=== PATIENT | male | born 1965 | race Caucasian/White ===

== ENCOUNTER 2017-07-22 08:56 | Inpatient (IN) ==
[2017-07-22] MEDS ORDERED: *HR* OxyCODONE Immed Rel 5 MG TABLET PO PRN (13:36)
[2017-07-22] MEDS ORDERED: Naloxone 0.4 MG/ML INJ IVP PRN (13:36)
[2017-07-22] MEDS ORDERED: Acetaminophen 325 MG TABLET PO PRN (13:36)
[2017-07-22] MEDS ORDERED: *HR* HYDROcodone/Acet 5/325 mg TABLET PO PRN (13:36)
[2017-07-22] MEDS ORDERED: *HR* Heparin 5,000 UNIT/ML VIAL IVP ONE (13:53)
[2017-07-22] MEDS ORDERED: *HR* Heparin 5,000 UNIT/ML VIAL IVP PRN ×2 (13:53)
[2017-07-22 13:59] LABS: Basophils % 0.4 %; Eosinophils # 0.1 K/mcL (0.0-0.6); Eosinophils % 1.2 %; Hematocrit 42.5 % (37.5-50.1); Hemoglobin 14.6 g/dL (12.9-16.9); Immature Granulocytes % 0.2 % (0-4); Lymphocytes # 3.6 K/mcL (0.6-4.6); Lymphocytes % 42.7 %; Mean Corpuscular HGB Conc 34.4 g/dL (31.6-35.5); Mean Corpuscular Hemoglobin 30.4 pg (28.0-33.3); Mean Corpuscular Volume 88.5 fL (83.0-100.0); Mean Platelet Volume 10.1 fL (9.4-12.4); Monocytes # 0.7 K/mcL (0.0-1.3); Monocytes % 8.4 %; Neutrophils # 3.9 K/mcL (1.6-8.9); Platelet Count 280 K/mcL (140-400); Red Cell Distribution Width 13.5 % (11.5-14.5); Segmented Neutrophils % 47.1 %
[2017-07-22 14:17] LABS: Alanine Aminotransferase 15 Units/L (7-52); Albumin 4.2 g/dL (3.5-5.7); Albumin/Globulin Ratio 1.7 (1.1-2.2); Alkaline Phosphatase 105 Units/L (34-104); Aspartate Amino Transferase 18 Units/L (13-39); BUN/Creatinine Ratio 12 (6-26); Bilirubin,Total 0.4 mg/dL (0.3-1.0); Blood Urea Nitrogen 12 mg/dL (6-20); Calcium 8.6 mg/dL (8.6-10.3); Carbon Dioxide 25 mEq/L (23-29); Chloride 109 mEq/L (98-107); Globulin 2.5 g/dL (2.4-3.5); Glucose 89 mg/dL (70-105); Osmolality,Calculated 285 (280-300); Potassium 4.3 mEq/L (3.5-5.1); Sodium 138 mEq/L (136-145); Total Protein 6.7 g/dL (6.4-8.9); eGFR For African Americans > 60 (> 60); eGFR For Non-African Americans > 60 (> 60)
[2017-07-22 14:23] LABS: Troponin I 0.15 ng/mL (< 0.04)
[2017-07-22] MEDS: Heparin 25,000 UNIT/500 ML D5W 25,000 UNIT/500 ML BAG IVC SCH (14:31)
--- NOTE | 2017-07-22 15:05 | Internal Med History&Physical ---
<Ilan Segura - Last Filed: 07/22/17 15:30> Date of Encounter: 07/22/17 Time of Encounter: 12:30 Internal Medicine - H&P: HPI Chief complaint: CP Admitted From: Emergency Dept Plans for Post Hospital Care: Home History of present illness: Mr. Khalil is a 51 year old male w/no medical hx presents from the ED w/CC of CP for the past month that is intermittent but that has become progressively worse over the past week. This morning, pt. describes pain as the worst it has been. Describes pain as right-sided CP that is sharp/stabbing w/radiation to the right arm. Describes pain as severe enough to bring him to his knees. Associated sx: diaphoresis and SOB. Pain comes on at rest and lasts up to 30 minutes. No alleviating factors. 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 Denies taking any medications daily (including aspirin), cardiac hx, or recent cardiac work-up. Reports he is adopted so very little biological info on parents available except that father of CVA. Patient denies recent illness , fever, chills, nausea, vomiting, changes in vision, headache, abdominal pain, diarrhea, constipation, dizziness, lightheadedness, pre-syncope, or syncope. Past Med Surg Social Fam HX - Past Medical History Source: patient, old records reviewed Medical history: no medical history Psychiatric history: no psych history - Past Surgical History Surgical History: no surgical history - Social History Smoking Status: Current every day smoker Packs per day: 2 PPD Smokeless Tobacco Status: No Alcohol use: none Drug use: marijuana (Occasional for left hip pain) Occupational status: employed Current living situation: Home, With Family Activity Level: Independent ambulation, Very active Recent Out of Country Travel Within the Last 8 Weeks: No Exposure or Possible Exposure to Illness During Travel: No - Family History Father Adopted: Yes Race: Family Member Ethnicity: Non- Living Status: Age at : 74 Cause of : CVA Hx Family Cardiac Disorders: Yes (CVA) Hx Family Cancer: Yes (Throat) Hx Family Neurologic Disorders: Yes (CVA) Mother Adopted: Yes Race: Family Member Ethnicity: Non- Living Status: Still Living Hx Family Musculoskeletal Disorders: Yes Brother History Unknown: Yes Adopted: Yes Race: Family Member Ethnicity: Non- Living Status: Still Living Sister History Unknown: Yes Adopted: Yes Race: Family Member Ethnicity: Non- Living Status: Still Living Internal Medicine - H&P: Meds No Known Home Drugs 07/22/17 [History] 3 Allergy/AdvReac Type Severity Reaction Status Date / Time No Known Allergies Allergy Verified 07/22/17 12:58 All Systems PM: A 10-system review of systems was performed and is negative for pertinent findings except as documented above in the HPI. - Constitutional Constitutional: no chills, no fever(s), no night sweats - EENT Eyes: no change in vision, no discharge, no pain, no photophobia Ears: no ear discharge, no ear pain, no tinnitus Nose, mouth and throat: no dysphagia, no nasal discharge, no neck pain, no sore throat - Breasts Breasts: as per HPI - Cardiovascular Cardiovascular ROS IM: as per HPI, chest pain, diaphoresis, dyspnea, no lightheadedness, no palpitations, no syncope - Respiratory Respiratory: as per HPI, dyspnea, no cough, no wheezing, no excessive phlegm production - Gastrointestinal Gastrointestinal: no abdominal pain, no diarrhea, no hematemesis, no hematochezia, no melena, no nausea, no vomiting - Genitourinary Genitourinary ROS male: as per HPI - Musculoskeletal Musculoskeletal ROS IM: no numbness, no tingling - Integumentary Integumentary IM: no rash, no unusual bruising - Neurological Neurological ROS: no confusion, no convulsions, no focal weakness, no numbness, no tingling, no tremor(s) - Psychiatric Psychiatric: as per HPI - Endocrine Endocrine IM: as per HPI - Hematologic/Lymphatic Hematologic/Lymphatic: no easy bruising - Allergic/Immunologic Allergic/Immunologic: as per HPI - Constitutional Vitals: Temp Pulse Resp BP Pulse Ox 97.5 F L 63 19 126/76 97 07/22/17 12:42 07/22/17 13:21 07/22/17 12:42 07/22/17 12:42 07/22/17 12:42 General appearance: Present: cooperative, A&O X 3, pleasant, no acute distress, answers questions appropriately - Head Head exam: Present: atraumatic, normocephalic - Eye Eye exam: Present: PERRL, conjuntiva pink, sclera anicteric Pupils: Present: PERRL - ENT ENT exam: Present: normal exam, normal external ear exam - Neck Neck exam general surgery: Present: normal inspection, supple, trachea midline. Absent: lymphadenopathy - Respiratory Respiratory exam: Present: CTAB. Absent: accessory muscle use, rales, rhonchi, wheezes - Cardiovascular Cardiovascular exam: Present: RRR, +S1, +S2. Absent: diastolic murmur, gallop, rubs, systolic murmur - GI/Abdominal GI/Abdominal exam: Present: normal bowel sounds, soft, no peritoneal signs. Absent: distended, tenderness - Rectal Rectal exam: Present: deferred - Additional comments: exam deferred. - Extremities Exam Extremities exam: Present: warm, radial pulses palpable and symmetrical. Absent : calf tenderness, cyanotic, pedal edema - Back Exam Back exam: Present: normal inspection - Neurological Exam Neurological exam: Present: alert, CN II-XII intact, oriented X3, no focal deficits. Absent: pronater drift, facial droop, speech deficit - Psychiatric Psychiatric exam: Present: normal affect, normal mood - Skin Skin exam: Present: dry, intact Internal Med - H&P Results - Labs CBC & Chem 7: 07/22/17 13:44 07/22/17 13:44 Labs: Short CBC 07/22/17 Range/Units 13:44 WBC 8.3 (4.3-11.1) K/mcL Hgb 14.6 (12.9-16.9) g/dL Hct 42.5 (37.5-50.1) % Plt Count 280 (140-400) K/mcL Neutrophils # 3.9 (1.6-8.9) K/mcL BMP 07/22/17 13:44 Sodium 138 Potassium 4.3 Chloride 109 H Carbon Dioxide 25 BUN 12 Creatinine 1.02 Glucose 89 Calcium 8.6 Cardiac Enzymes 07/22/17 Range/Units 13:44 Troponin I 0.15 H* (< 0.04) ng/mL Liver Function 07/22/17 Range/Units 13:44 Total Bilirubin 0.4 (0.3-1.0) mg/dL AST 18 (13-39) Units/L ALT 15 (7-52) Units/L Alkaline Phosphatase 105 H (34-104) Units/L Albumin 4.2 (3.5-5.7) g/dL - Assessment and plan (1) Chest pain Current Visit: Yes Status: Acute Assessment and plan: Acute CP for the past month that is intermittent but that has become progressively worse over the past week. This morning, pt. describes pain as the worst it has been. Describes pain as right-sided CP that is sharp/stabbing w/ radiation to the right arm. Describes pain as severe enough to bring him to his knees. SOB and diaphoresis w/sx. Denies cardiac hx or recent cardiac w/u. Reports biological father of CVA. Cardiology discussed pt. w/transfer personnel when he was accepted and I appreciate the consult. Aspirin. 80 mg Lipitor now. Lipid panel in a.m. labs. Echocardiogram. Continuous cardiac telemetry. Pt. placed on heparin drip d/t initial troponin of 0.15 on admission. Will trend. Nitro SL PRN. Pt. discussed w/Dr. Valdovinos who agrees w/plan of care. Pt. is high risk for cardiac event and further morbidity based on current CP sx w/elevated troponin, recurrent sx over the past month, and lack of familial cardiac hx and report of father's from CVA, and current in. Inpatient. Qualifiers: Chest pain type: other chest pain Qualified Code(s): R07.89 - Other chest pain; R07.8 - Other chest pain (2) SOB (shortness of breath) Current Visit: Yes Status: Acute Assessment and plan: Acute SOB accompanying CP sx. Pt. denies use of home O2 but reports he currently smokes 2 PPD. No hx of CHF or COPD. Supplemental O2 w/titration and SpO2 monitoring PRN. Lungs clear on auscultation. (3) Tobacco abuse counseling Current Visit: Yes Status: Acute Assessment and plan: Pt. reports smoking 2 PPD currently. Explained dangers of smoking r/t CP and AR. Pt. states that he wants to quit at this time but finds it hard since other family members are smokers. Expresses understanding to our discussion and need for cessation. Denies need for nicotine patch at this time but would like a prescription for patches on discharge. (4) DVT prophylaxis Current Visit: Yes Status: Acute Assessment and plan: Patient placed on heparin drip d/t initial elevated troponin of 0.15. Monitor pt. for signs of bleeding. - Time Spent With Patient Total time spent is greater than 50% in coordination of care (as documented) at patient's floor/unit and/or counseling patient: Greater than 35 minutes <Radha Valdovinoscrystal - Last Filed: 07/22/17 16:32> Date of Encounter: 07/22/17 Internal Medicine - H&P: HPI History of present illness: Mr. Khalil is a 51 year old male All Systems PM: A 10-system review of systems was performed and is negative for pertinent findings except as documented above in the HPI. - Constitutional Vitals: Temp Pulse Resp BP Pulse Ox 97.7 F 58 16 117/83 97 07/22/17 15:55 07/22/17 15:55 07/22/17 15:55 07/22/17 15:55 07/22/17 15:55 Internal Med - H&P Results - Labs CBC & Chem 7: 07/22/17 13:44 07/22/17 13:44 Labs: Short CBC 07/22/17 Range/Units 13:44 WBC 8.3 (4.3-11.1) K/mcL Hgb 14.6 (12.9-16.9) g/dL Hct 42.5 (37.5-50.1) % Plt Count 280 (140-400) K/mcL Neutrophils # 3.9 (1.6-8.9) K/mcL BMP 07/22/17 13:44 Sodium 138 Potassium 4.3 Chloride 109 H Carbon Dioxide 25 BUN 12 Creatinine 1.02 Glucose 89 Calcium 8.6 Cardiac Enzymes 07/22/17 Range/Units 13:44 Troponin I 0.15 H* (< 0.04) ng/mL Liver Function 07/22/17 Range/Units 13:44 Total Bilirubin 0.4 (0.3-1.0) mg/dL AST 18 (13-39) Units/L ALT 15 (7-52) Units/L Alkaline Phosphatase 105 H (34-104) Units/L Albumin 4.2 (3.5-5.7) g/dL - Attending Attestation I saw and examined this patient independently, and my medical decision making was reviewed with the [employer]/PA on 2017. I agree with the documented findings , assessment and treatment plan as described in the H&P. When I saw the patient, he is a chest pain-free. Vitas is stable. - Time Spent With Patient Total time spent is greater than 50% in coordination of care (as documented) at patient's floor/unit and/or counseling patient:
[2017-07-22] MEDS ORDERED: Nitroglycerin 0.4 MG TAB.SUBL SL PRN (15:22)
--- NOTE | 2017-07-22 16:15 | Cardiology Consult Note ---
Addendum entered and electronically signed by Alvarado Bojorquez CNP 07/22/17 16:32 : Continue asa, statin, and heparin gtt. No bb due to low HR. Original Note: Date of Encounter: 07/22/17 Time of Encounter: 16:06 Assessment and Plan (1) NSTEMI (non-ST elevated myocardial infarction) Current Visit: Yes Status: Acute Troponin elevation concerning for NSTEMI. Intermittent chest pain over the last month. History of heavy tobacco use. Troponin 0.06, 0.17. Check TTE. LHC R/B/A reviewed. He agrees to proceed. NPO after midnight for possible LHC tomorrow. Discussion w patient/family: The assessment and plan as outlined above was discussed with the patient and/or family members who expressed understanding and agreement. All questions were answered. Thank you for involving us in the care of your patient. Please call with any questions. History of Present Illness Consult date: 07/22/17 Requesting physician: Ilan Segura Consult reason: Chest pain Chief complaint: Right sided chest pain History of present illness: Mr. Khalil is a 51 year old male with no past medical history except heavy tobacco use presents with the c/o right chest wall pain radiating to his right arm. He notices his pain in the mornings when he wakes. He associates the pain with diffuse sweating. He denies SOB or palpitations. EKG shows NSR with no acute ST or T wave changes. He denies previous cardiac work-up. He states that he is adopted and does not know his family history. Past Med Surg Social Fam HX - Past Medical History Attestation: Yes The following information was validated with the patient. Medical history: no medical history Psychiatric history: no psych history - Past Surgical History Surgical History: no surgical history - Social History Smoking Status: Current every day smoker Packs per day: 2 PPD Smokeless Tobacco Status: No Alcohol use: none Drug use: marijuana (Occasional for left hip pain) - Family History Father Adopted: Yes Race: Family Member Ethnicity: Non- Living Status: Age at : 74 Cause of : CVA Hx Family Cardiac Disorders: Yes (CVA) Hx Family Cancer: Yes (Throat) Hx Family Neurologic Disorders: Yes (CVA) Mother Adopted: Yes Race: Family Member Ethnicity: Non- Living Status: Still Living Hx Family Musculoskeletal Disorders: Yes Brother History Unknown: Yes Adopted: Yes Race: Family Member Ethnicity: Non- Living Status: Still Living Sister History Unknown: Yes Adopted: Yes Race: Family Member Ethnicity: Non- Living Status: Still Living Medications and Allergies No Known Home Drugs 07/22/17 [History] 3 Allergy/AdvReac Type Severity Reaction Status Date / Time No Known Allergies Allergy Verified 07/22/17 12:58 All Systems Review: The remainder of the systems were reviewed and are negative Physical Examination Vital Signs, Last 4 Hours Temp Pulse Resp BP Pulse Ox 07/22/17 15:55 97.7 F 58 16 117/83 97 07/22/17 15:34 51 07/22/17 13:21 63 07/22/17 12:42 97.5 F L 70 19 126/76 97 General: Conversant, No Apparent Distress HEENT: Atraumatic, Normocephaly, Mucus Membranes Moist Neck: No JVD, Normal carotid pulses Cardiac: Reg Rate and Rhythm, Normal S1 and S2, No Murmur Lungs: Normal Breath Sounds, No Wheeze, Rales, Rhonchi Neuro: Alert and responsive, No focal deficits noted Abdomen: Soft, Non-Tender Skin: No rashes noted on visualized skin Musculoskeletal: No Chest Wall Tenderness Extremities: No Clubbing, No Cyanosis, No Edema, Normal Pulses Results 07/22/17 13:44 07/22/17 13:44 Lab Results 07/22/17 07/22/17 13:44 13:44 WBC 8.3 Hgb 14.6 Hct 42.5 Plt Count 280 Sodium 138 Potassium 4.3 Chloride 109 H Carbon Dioxide 25 BUN 12 Creatinine 1.02 Glucose 89 Calcium 8.6 Total Bilirubin 0.4 AST 18 ALT 15 Alkaline Phosphatase 105 H Troponin I 0.15 H* - EKG Interpretation EKG results cardiology: personally reviewed Consult Discharge Plan - Plan Referrals: NONE,PCP [Primary Care Provider] - NONE [Other]
[2017-07-23 03:42] LABS: Basophils % 0.4 %; Eosinophils # 0.1 K/mcL (0.0-0.6); Eosinophils % 1.3 %; Hemoglobin 14.5 g/dL (12.9-16.9); Immature Granulocytes % 0.3 % (0-4); Lymphocytes # 3.1 K/mcL (0.6-4.6); Lymphocytes % 33.7 %; Mean Corpuscular HGB Conc 34.5 g/dL (31.6-35.5); Mean Corpuscular Hemoglobin 30.5 pg (28.0-33.3); Mean Corpuscular Volume 88.4 fL (83.0-100.0); Mean Platelet Volume 10.8 fL (9.4-12.4); Monocytes # 0.8 K/mcL (0.0-1.3); Monocytes % 8.6 %; Neutrophils # 5.1 K/mcL (1.6-8.9); Platelet Count 261 K/mcL (140-400); Red Blood Count 4.75 M/mcL (4.19-5.50); Red Cell Distribution Width 13.3 % (11.5-14.5); Segmented Neutrophils % 55.7 %
[2017-07-23 03:48] LABS: INR 1.1; Prothrombin Time 11.5 Seconds (9.4-12.1)
[2017-07-23 04:04] LABS: Alanine Aminotransferase 14 Units/L (7-52); Albumin 3.7 g/dL (3.5-5.7); Albumin/Globulin Ratio 1.4 (1.1-2.2); Alkaline Phosphatase 98 Units/L (34-104); Aspartate Amino Transferase 15 Units/L (13-39); BUN/Creatinine Ratio 16 (6-26); Bilirubin,Total 0.5 mg/dL (0.3-1.0); Blood Urea Nitrogen 15 mg/dL (6-20); Calcium 8.7 mg/dL (8.6-10.3); Carbon Dioxide 22 mEq/L (23-29); Chloride 109 mEq/L (98-107); Chol/HDL Ratio 4.5 (0-4.9); Cholesterol 149 mg/dL (< 200); Globulin 2.6 g/dL (2.4-3.5); Glucose 87 mg/dL (70-105); HDL Cholesterol 33 mg/dL (40-59); LDL Cholesterol,Calculated 93 mg/dL (0-99); Magnesium 2.1 mg/dL (1.6-2.6); Osmolality,Calculated 286 (280-300); Sodium 138 mEq/L (136-145); Total Protein 6.3 g/dL (6.4-8.9); Triglycerides 116 mg/dL (< 150); eGFR For African Americans > 60 (> 60); eGFR For Non-African Americans > 60 (> 60)
[2017-07-23] MEDS: Aspirin Enteric Coated 81 MG Tablet PO SCH (08:27)
[2017-07-23] MEDS ORDERED: Nitroglycerin 1,000 MCG/10 ML VIAL IV ONE (11:55)
[2017-07-23] MEDS ORDERED: Heparin 1,000 UNITS/500 mL 500 ML ONE (11:55)
[2017-07-23] MEDS ORDERED: *HR* Heparin 10,000 UNIT/10 ML VIAL ONE (11:55)
[2017-07-23] MEDS ORDERED: ISOVUE-370 200 ML INFUS..BTL IV ONE (11:55)
[2017-07-23] MEDS ORDERED: *HR* Midazolam HCl 5 MG/5 ML VIAL IVP ONE (11:56)
[2017-07-23] MEDS ORDERED: *HR* FentaNYL (PF) 250 MCG/5 ML VIAL ONE (11:56)
[2017-07-23] MEDS ORDERED: Verapamil 5 MG/2 ML VIAL ONE (12:43)
--- NOTE | 2017-07-23 13:36 | Invasive Diagnostic Lab Proc ---
Name: Hai Khalil Date of Study: 07/23/2017 Date: 1965 Ht: 68.9in Medical Record#: [id number] Age: 51 Wt: 149.25lb Gender: Male BSA: 1.82 Order #: [id number] BMI: 22.11 Physicians Procedure Physician: Sharad hCristian MD Referring MD: Referring MD: Staff Name Position Time In OracioAmbrocio RN Monitor 12:04 PM Sheldon Maurice RN Repair Clerk 12:04 PM Natalie Perdomo RT Scrub 12:04 PM Indications Indication Non-Stemi Procedures Performed Procedure CORONARY ARTERY ANGIO S&I Pre-Procedure Checklist Informed consent is complete signed and on chart. H&P is on chart. ID band is on and ID verified with patient. Patient NPO for procedure The procedure was described for the patient and questions were answered. Blood Pressure: 144/84 ECG is on chart. Rhythm: Sinus Bradycardia Plan of Care Patient will tolerate the procedure without complications. Adequate level of comfort will be maintained. Hemodynamics will remain stable Patient will recover from procedure without complications. Respiratory function will be maintained. Cardiac rhythm will remain stable. Patient temperature will be maintained. Patient and/or family have verbalized understanding of the procedure. Patient Education Chief Complaint/Reason for Test: Cardiac Cath Developmental Category: Adult (18-64 years) Developmentally Appropriate for Age: Yes Learning Barriers: None Education Needs: Procedure Education Method: Verbal Information Taught: Cardiac Cath Educational Evaluation: Able to repeat information Intravenous Access Time IV Size Location DC'd Fluid/Drip Rate Units RN 18g 1 1/4" Patent On Arrival Lt Antecubital 0.9NaCl Sheldon Maurice RN 18g 1 1/4" Patent On Arrival Rt Hand Sheldon Maurice RN Allergies No Known Allergies Vital Signs Time BP (mmHg) HR (bpm) O2 Sat. RR (bpm) LOC 123 / 83 63 100 % 18 5 = Fully awake and oriented or at pre-proc level 12:04 PM / % 5 = Fully awake and oriented or at pre-proc level 12:04 PM / % 4 = Oriented but drowsy 12:20 PM / % 4 = Oriented but drowsy 12:35 PM / % 4 = Oriented but drowsy 12:50 PM / % 4 = Oriented but drowsy 01:06 PM / % 4 = Oriented but drowsy 12:06 PM 144 / 84 55 99 % 12:10 PM 124 / 74 56 100 % 12:15 PM 124 / 88 52 100 % 12:20 PM 119 / 74 54 99 % 12:25 PM 127 / 76 57 100 % 12:30 PM 119 / 76 53 100 % 12:36 PM 138 / 84 57 100 % 12:41 PM 151 / 113 69 100 % 12:45 PM 142 / 94 52 99 % 12:50 PM 142 / 93 67 100 % 12:55 PM 121 / 77 61 100 % 01:00 PM 123 / 79 83 97 % 01:05 PM 117 / 67 65 98 % 01:10 PM 124 / 71 74 99 % 01:15 PM 125 / 77 65 % Procedural Medications Time Medication Dose Units Method Given By 12:05 PM Oxygen 2 L/min nasal cannula Sheldon Maurice RN 12:07 PM Versed 1 mg Intravenous Sheldon Maurice RN 12:07 PM Fentanyl 50 mcg Intravenous Sheldon Maurice RN 12:27 PM Lidocaine 2% 18 ml Subcutaneous Sharad Christian MD 12:36 PM Lidocaine 2% 10 ml Subcutaneous Sharad Christian MD 12:48 PM Versed 1 mg Intravenous Sheldon Maurice RN 12:48 PM Fentanyl 25 mcg Intravenous Sheldon Maurice RN 12:49 PM Lidocaine 2% 5 ml Subcutaneous Sharad Christian MD 12:58 PM Heparin 3500 units Nitroglycerin 200 mcg Verapamil 2.5 mg Intraarterial Sharad Christian MD ASA Classification: CLASS II- Mild systemic disease (i.e. well-controlled diabetes, hypertension, asthma, cigarette smoking) Jose Score Preprocedure Postprocedure Activity 2- Moves 4 extremities sustained head lift Activity 2- Moves 4 extremities sustained head lift Circulation 2- SBP +/= 20 points of pre-anesthetic level Circulation 2- SBP +/= 20 points of pre-anesthetic level Consciousness 2- Awake and alert oriented x 3 Consciousness 2- Awake and alert oriented x 3 O2 Saturation 2- Able to maintain O2 satruation of 92% on room air O2 Saturation 2- Able to maintain O2 satruation of 92% on room air Respiratory 2- Able to deep breathe and cough well Respiratory 2- Able to deep breathe and cough well Total Score 10 Total Score 10 Contrast Agent: Isovue Diagnostic Contrast: 69 ml Total Contrast: 69 ml Fluoro Dose: 259 mGy Procedure Log Time Note Enter By 12:04 PM Pt arrived to lab rep 2 at 12:04 [facility] 12:04 PM Ambrocio Narayanan RN Position: Monitor Time in: : [facility] 12:04 PM Sheldon Maurice RN Position: Repair Clerk [facility]: [facility] Natalie Perdomo Position: Scrub Time in: : [facility] 12:04 PM Patient charges- Angio tray pack, Navilyst 3mm J, Pulse Oximetry and ACIST tubing and transducer [facility] 12: PM Hair removed from procedure site in procedure lab using clippers. Bilateral groin prepped with Chloraprep by Natalie Perdomo, then patient was draped. Skin intact. [facility] 12: PM Physician arrived 12: [facility] 12:04 PM Meet and greet completed [facility] : PM Sign in performed according to hospital policy. [facility] 12:04 PM Procedure start : [facility] 12:04 PM Time: 12:04 Patient comfortable and pain free: Yes [facility] :04 PM Time: :04LOC: 5 = Fully awake and oriented or at pre-proc level [facility] 12: PM CathStat 12:04 PM Vitals capture started with the following parameters, Patient=Adult, Interval=5 min, Initial Tqgwugsz=519 mmHg, Deflation Rate=5 mmHg, Cuff placed on Right Arm 12:06 PM Time: 12:05 Oxygen on at 2 L/min per nasal cannula by Sheldon Maurice RN [facility] 12:06 PM HR=55 bpm, YMVM=855/84 mmhg, SpO2=99.0 %, Comment=sb 12:07 PM Time: 12:07 Versed 1 mg Intravenous [facility]07 PM Time: 12:07 Fentanyl 50 mcg Intravenous Given by Sheldon Maurice RN [facility] 12:07 PM Clinical Presentation: Non-STEMI [facility] 12:10 PM HR=56 bpm, XYOJ=551/74 mmhg, UyV1=068.0 %, Comment=sb 12:15 PM HR=52 bpm, ZVPV=938/88 mmhg, LvA6=060.0 %, Comment=sb 12:19 PM Time: 12:04 Patient comfortable and pain free: Yes [facility] 12:[facility] PM Time: 12:04LOC: 4 = Oriented but drowsy jcallan 12:20 PM HR=54 bpm, BHBW=531/74 mmhg, SpO2=99.0 %, Comment=sb 12:22 PM Pressure channel 1 zeroed. 12:22 PM Recorded ECG: HR=56 Condition=Condition 1 12:25 PM Time out performed according to hospital policy [facility] 12[facility]25 PM HR=57 bpm, XHNS=211/76 mmhg, OjG8=902.0 %, Comment=sb 12:28 PM Time: 12:27 18 ml Lidocaine 2% to right groin Subcutaneous Given by Sharad Christian MD [facility] 12:29 PM Micro-Introducer Kit utilized for sheath placement [facility] 12:30 PM 3ml contrast injected, images obtained of right femoral artery [facility] 12:30 PM HR=53 bpm, XREZ=437/76 mmhg, QqU7=145.0 %, Comment=sb 12:31 PM Access obtained by percutaneous puncture. 6Fr 10cm Terumo [place] sheath placed in right Femoral artery. [id number] [facility] 12:32 PM Recorded Pressure: Ao, HR=55, Condition=Condition 1 (Aorta) Ao 82/59/70 12:32 PM Right femoral artery blocked, access unable to go through. Attempting left sided access. [facility] 12:34 PM Time: 12:19 Patient comfortable and pain free: Yes [facility] 12:35 PM Time: 12:20LOC: 4 = Oriented but drowsy [facility] 12[facility]36 PM HR=57 bpm, VIDP=946/84 mmhg, UjN6=962.0 %, Comment=sb 12:36 PM Time: 12:36 10 ml Lidocaine 2% to left groin Subcutaneous Given by Sharad Christian MD [facility] 12[facility]38 PM Micro-Introducer Kit utilized for sheath placement [facility] 12:39 PM 3 ml contrast injected to left FA. Occluded as well. Attempting radial access. jcallan 12:41 PM HR=69 bpm, XDGU=674/113 mmhg, TjE6=669.0 %, Comment=nsr 12:45 PM HR=52 bpm, VAMM=605/94 mmhg, SpO2=99.0 %, Comment=sb 12:46 PM 0.035 260cm Navilyst 3mm J wire [id number] jcallihan 12:48 PM Time: 12:48 Versed 1 mg Intravenous Given by Sheldon Maurice RN jcálvaro 12:49 PM Time: 12:48 Fentanyl 25 mcg Intravenous Given by Sheldon Maurice RN jcallyamel 12:49 PM Time: 12:49 5 ml Lidocaine 2% to left radial Subcutaneous Given by Sharad Christian MD jcálvaro 12:50 PM Time: 12:34 Patient comfortable and pain free: Yes [email or web address] 12:50 PM Time: 12:35LOC: 4 = Oriented but drowsy jcallihan 12:50 PM HR=67 bpm, BMBK=993/93 mmhg, MuL5=466.0 %, Comment=sb 12:55 PM HR=61 bpm, ZCQI=054/77 mmhg, QbC1=886.0 %, Comment=sb 12:58 PM Access obtained by percutaneous puncture. 6Fr 11cm Terumo [place] sheath placed in left Radial artery. [id number] jcallihan 12:58 PM Time: 12:58 Patient given 3500 units Heparin, 200 mcg Nitroglycerin, and 2.5 mg Verapamil Intraarterial by Sharad Christian MD. This is given to reduce risk of vessel spasm and thrombosis. [email or web address] 01:00 PM HR=83 bpm, KJLV=838/79 mmhg, SpO2=97.0 %, Comment=nsr 01:01 PM 5Fr FR 4 catheter inserted over the wire DN jcallihan 01:02 PM Recorded Pressure: Ao, HR=69, Condition=Condition 1 (Aorta) Ao 89/72/81 01:02 PM RCA angiography performed in multiple views. jcallihan 01:03 PM Catheter removed jcallihan 01:03 PM 5Fr FL 4 catheter inserted over the wire DN jcallihan 01:03 PM Pressure channel 1 zero failed. 01:03 PM Pressure channel 1 zeroed. 01:05 PM Time: 12:50 Patient comfortable and pain free: Yes jcallihan 01:05 PM LCA angiography performed in multiple views. [email or web address] 01:05 PM Recorded Pressure: Ao, HR=66, Condition=Condition 1 (Aorta) Ao 79/58/68 01:05 PM HR=65 bpm, DACE=007/67 mmhg, SpO2=98 % 01:06 PM Time: 12:50LOC: 4 = Oriented but drowsy jcallihan 01:08 PM Recorded Pressure: Ao, HR=75, Condition=Condition 1 (Aorta) Ao 86/61/73 01:08 PM Catheter removed jcallihan 01:10 PM HR=74 bpm, FKRG=121/71 mmhg, SpO2=99.0 %, Comment=sb 01:12 PM Lesion found in Mid RCA. Pre Stenosis: 65 Pre SUKI Flow: jcallihan 01:12 PM Right Coronary, Right Posterior Descending Arteries with Right Posterolateral and Acute Marginal branches with 65 % stenosis. If graft is supplying this area, 0 % stenosis jcallihan 01:12 PM Coronary Dominance: Co-dominant jcallihan 01:14 PM Procedure completed at 13:14 jcallihan :14 PM Did you address SUKI flow and Dominance? Yes jcallihan 01:14 PM Sign out completed: Radiation Dose 259 mGy Fluoro Time: 4.3 Isovue 370 - 200ml contrast 69 ml given by Sharad Christian MD. Complications: NoneCardiac Rehab Consult needed: NoConfirmed administered medications: Yes jcallihan 01:15 PM Isovue 370 - 200ml,1 Bottle(s) used. jcallihan 01:15 PM Arterial sheath pulled, Vasc Band closure device used and was Successful S/N. jcallihan 01:15 PM 10 ml air in Vasc Band. jcallihan 01:15 PM HR=65 bpm, KTSA=028/77 mmhg 01:15 PM Estimated Blood Loss: less than 20cc jcallihan 01:15 PM Post ECG NSR jcallihan 01:15 PM Post Blood Pressure 125/77 jcallihan 01:16 PM 13:15 Post Pulses Bilateral DP & PT 1+ jcallihan 01:16 PM 13:16 Post Pulses Bilateral radial 2+ jcallihan 01:16 PM Information taught Cardiac Cath and Vasc Band jcallihan 01:16 PM Education needs Procedure, Plan of Care, and Responsibilities of Patient in Care jcallihan 01:16 PM Learning barriers :None jcallihan 01:16 PM Education Methods Verbal jcallihan 01:16 PM Education evaluation Able to repeat information jcallihan 01:16 PM Site status No bleeding/hematoma - Rt Groin as reported by Natalie Perdomo RT at 13:16 jcallihan 01:17 PM Site status No bleeding/hematoma - Lt Groin as reported by Natalie Perdomo RT at 13:16 jcallihan 01:17 PM Site status No bleeding/hematoma - Lt Wrist as reported by Natalie Perdomo RT at 13:17 jcallihan 01:17 PM Opsite applied jcallihan 01:17 PM Opsite applied jcallihan 01:17 PM Opsite applied jcallihan 01:18 PM Plavix, Effient or Brilinta given No jcallihan 01:18 PM No family present at this time. jcallihan 01:18 PM Complications: None jcallihan 01:18 PM Fluoro Time: 4.3 jcallihan 01:18 PM Isovue 370 - 200ml contrast 69 ml given by Sharad Christian. jcallihan 01:21 PM Time: 13:05 Patient comfortable and pain free: Yes jcallihan 01:21 PM Radiation Dose 259 mGy jcallihan 01:21 PM Time: 13:06LOC: 4 = Oriented but drowsy jcallihan 01:23 PM Report given to Jovita VALENZUELA Pt taken to 2N Room #1. 13:22 jcallihan 01:25 PM Patient out of room: 13:25 jcallihan 01:27 PM Lesion found in Mid LAD. Pre Stenosis: 60 Pre SUKI Flow: [email or web address] 01:27 PM Lesion found in Proximal Circumflex. Pre Stenosis: 50 Pre SUKI Flow: jcallihan 01:29 PM ASA Class CLASS II- Mild systemic disease (i.e. well-controlled diabetes, hypertension, asthma, cigarette smoking) jcallihan 01:30 PM Lesion found in Proximal RCA. Pre Stenosis: 60 Pre SUKI Flow: jcallihan Complications Complication None None Hemodynamics Pressures Site Systolic/A Wave Diastolic/V Wave Mean AO 82 59 70 AO 89 72 81 AO 79 58 68 AO 86 61 73 Post Procedure Information Blood Pressure: 125/77 mmHg Rhythm: NSR Post procedural instructions were given Closure Device Time Device Success/Fail 07/23/2017 1:21:00 PM Mechanical Compression Successful Site Checks Time Location Status Staff Sheath In? Note 01:16 PM Rt Groin No bleeding/hematoma Natalie Perdomo RT 01:16 PM Lt Groin No bleeding/hematoma Natalie Perdomo RT 01:17 PM Lt Wrist No bleeding/hematoma Natalie Perdomo RT Pulses Time Site Pre-Procedure Post-Procedure Note Bilateral DP & PT 1+ Bilateral radial 2+ 1:15:00 PM Bilateral DP & PT 1+ 1:16:00 PM Bilateral radial 2+ Updated by Ambrocio Narayanan RN on 07/23/2017 1:31:06 PM electronically signed on 07/23/2017 1:31:30 PM with status of Final
--- NOTE | 2017-07-23 13:40 | Pre-Sedation Evaluation ---
Pre-sedation evaluation - Pre-sedation checklist Date of procedure: 07/23/17 Procedure: left heart cath Recent Vitals: Last Vital Signs Temp 98.0 F 07/23/17 11:26 Pulse 58 07/23/17 11:49 Resp 18 07/23/17 11:26 BP 123/83 07/23/17 11:26 Pulse Ox 100 07/23/17 11:26 H&P (including ROS) documented in medical record: Yes Previous reaction to sedatives/anesthetics: No Dietary Status: NPO after Midnight Dentition: poor dentition ASA Classification *see protocol: CLASS II-Mild systemic disease
--- NOTE | 2017-07-23 14:45 | Event Note ---
Date of Encounter: 07/23/17 Time of Encounter: 14:42 - Cardiology Event Note [facility] completed. Discussed with Dr. Christian. There was moderate non-obstructive three vessel CAD. He was also found to have occluded aorta and vascular surgery consult was recommended. If he requires surgery a stress test is recommended to evaluate moderate CAD prior to surgery. Dr. Hernandez notified. Stress test ordered for further evaluation of CAD.
[2017-07-23] MEDS: Heparin 25,000 UNIT/500 ML D5W 25,000 UNIT/500 ML BAG IVC SCH (17:35)
--- NOTE | 2017-07-23 18:38 | Vascular/Endovasc Consult Note ---
Date of Encounter: 07/23/17 Time of Encounter: 17:45 Assessment and Plan (1) Peripheral vascular disease Current Visit: Yes Status: Chronic The pathophysiology and natural history of peripheral vascular disease with discussed the patient UNDER answered. The patient has evidence of iliac and possible aortic disease. He has diminished pulse exam. His heart catheterization images were reviewed is patent bilateral internal and external iliac arteries as well as a patent common femoral arteries. On the left a stenosis can be detected in the distal common iliac artery. The right common iliac artery is not assessed angiographically on the study. The patient overriding problem with lower back pain and lumbar radiculopathy. This limits his mobility. As a result he denies symptoms of disabling vasculogenic claudication, rest pain, ulceration or gangrene. The patient has no signs or symptoms of acute limb threatening ischemia. This time recommend beginning cilostazol. Patient is currently taking aspirin. He is also taking a statin. We will obtain noninvasive vascular lab studies. The patient will follow-up in vascular clinic for further evaluation. (2) NSTEMI (non-ST elevated myocardial infarction) Current Visit: Yes Status: Acute Patient underwent left heart catheterization. He has been scheduled for a stress test. (3) Tobacco abuse Current Visit: Yes Status: Chronic The patient was counter excellent cessation. He was informed to continue smoking would likely worsen his atherosclerosis and is associated complications including heart attack, limb loss, stroke, organ failure and/or . (4) Lumbar radiculopathy Current Visit: Yes Status: Chronic Patient history of a lower back injury. His lower back pain and hip pain limiting his mobility. - History of Present Illness Consult date: 07/23/17 Requesting physician: Alvarado Bojorquez Consult reason: Peripheral vascular disease Chief complaint: claudication History of present illness: Mr. Khalil is a 51 year old male with history of tobacco abuse. The patient presented to [facility] emergency room with complaints of chest pain and right arm pain. Her symptoms have been occurring intermittently and sometimes each week. He was admitted and taken to the catheterization lab for a left heart catheterization. Attempts were made to access is a aorta via the right and left common iliac arteries. This access was unsuccessful and an aortic occlusion with suspected. The patient ultimately underwent heart catheterization without stenting via the left radial artery. Vascular surgery has been counseled for further evaluation. The patient reports that lower back injury that occurred several years ago. He reports chronic lower back pain and leg pain. He reports he has a pinched nerve in his left hip as well. He reports his mobility is limited by his lower back and hip pain. He denies symptoms consistent with vasculogenic claudication. He also denies rest pain, ulceration or gangrene. He currently denies chest pain or shortness of breath. Past Med Surg Social Fam HX - Past Medical History Medical history: no medical history Psychiatric history: no psych history - Past Surgical History Surgical History: no surgical history - Social History Smoking Status: Current every day smoker Packs per day: 2 PPD Smokeless Tobacco Status: No Alcohol use: none Drug use: marijuana (Occasional for left hip pain) - Family History Father Adopted: Yes Race: Family Member Ethnicity: Non- Living Status: Age at : 74 Cause of : CVA Hx Family Cardiac Disorders: Yes (CVA) Hx Family Cancer: Yes (Throat) Hx Family Neurologic Disorders: Yes (CVA) Mother Adopted: Yes Race: Family Member Ethnicity: Non- Living Status: Still Living Hx Family Musculoskeletal Disorders: Yes Brother History Unknown: Yes Adopted: Yes Race: Family Member Ethnicity: Non- Living Status: Still Living Sister History Unknown: Yes Adopted: Yes Race: Family Member Ethnicity: Non- Living Status: Still Living Medications and Allergies No Known Home Drugs 07/22/17 [History] 3 Allergy/AdvReac Type Severity Reaction Status Date / Time No Known Allergies Allergy Verified 07/22/17 12:58 All Systems Review: The remainder of the systems were reviewed and are negative - Constitutional Constitutional: no chills, no fever(s) - Vascular Vascular: no lower extremity swelling, no lower extremity ulcers, no lower extremity discoloration Exam Vital Signs, Last 4 Hours Temp Pulse Resp BP Pulse Ox 07/23/17 16:12 97.5 F L 64 18 115/88 96 07/23/17 16:00 64 115/88 96 07/23/17 15:35 57 16 103/82 98 07/23/17 15:09 53 17 131/90 99 07/23/17 14:50 57 18 133/84 98 General: Present: Conversant, No Apparent Distress HEENT: Present: Atraumatic, Normocephaly, Trachea midline, Pupils equal Neck: Absent: JVD, Lymphadenopathy, Left Carotid bruit, Right Carotid bruit Cardiac: Present: Reg Rate and Rhythm, Normal S1 and S2 Lungs: Present: Normal Breath Sounds, No Wheeze, Rales, Rhonchi Neuro: Present: Alert and responsive, No focal deficits noted, Cranial nerves grossly intact, Motor nerves grossly intact, Sensory nerves grossly intact Abdomen: Present: Soft, Non-tender, Other (No hematoma). Absent: Masses Vascular: Present: Normal capillary refill, Pulse, absent (Pedal signals are biphasic.), Color/Temperature (Feet are warm.). Absent: Cyanosis, Edema Skin: Present: No rashes noted on visualized skin Consult Discharge Plan - Plan Referrals: NONE [Other] NONE,PCP [Primary Care Provider] -
[2017-07-24] MEDS ORDERED: Regadenoson 0.4 MG/5 ML SYRINGE IVP ONE (05:29)
[2017-07-24 08:49] LABS: Basophils % 0.3 %; Eosinophils # 0.1 K/mcL (0.0-0.6); Eosinophils % 0.9 %; Hematocrit 43.8 % (37.5-50.1); Hemoglobin 15.7 g/dL (12.9-16.9); Immature Granulocytes % 0.3 % (0-4); Lymphocytes # 2.2 K/mcL (0.6-4.6); Lymphocytes % 24.3 %; Mean Corpuscular HGB Conc 35.8 g/dL (31.6-35.5); Mean Corpuscular Hemoglobin 31.1 pg (28.0-33.3); Mean Corpuscular Volume 86.7 fL (83.0-100.0); Mean Platelet Volume 9.9 fL (9.4-12.4); Monocytes # 0.7 K/mcL (0.0-1.3); Monocytes % 8.2 %; Neutrophils # 5.8 K/mcL (1.6-8.9); Platelet Count 257 K/mcL (140-400); Red Blood Count 5.05 M/mcL (4.19-5.50); Red Cell Distribution Width 13.3 % (11.5-14.5)
[2017-07-24 09:22] LABS: BUN/Creatinine Ratio 12 (6-26); Blood Urea Nitrogen 12 mg/dL (6-20); Calcium 9.4 mg/dL (8.6-10.3); Carbon Dioxide 24 mEq/L (23-29); Chloride 107 mEq/L (98-107); Glucose 87 mg/dL (70-105); Osmolality,Calculated 283 (280-300); Potassium 4.1 mEq/L (3.5-5.1); Sodium 137 mEq/L (136-145); eGFR For African Americans > 60 (> 60); eGFR For Non-African Americans > 60 (> 60)
--- NOTE | 2017-07-24 11:07 | Cardiology Progress Note ---
Date of Encounter: 07/24/17 Time of Encounter: 09:10 Assessment and Plan (1) NSTEMI (non-ST elevated myocardial infarction) Current Visit: Yes Status: Acute Troponin elevation concerning for NSTEMI up to 0.17. Intermittent chest pain over the last month. History of heavy tobacco use. C shows moderate non-obstructive CAD. Also seen to have significant PVD and vascular surgery consulted. Appreciate recommendations. Further work-up with vascular in clinic per note. Discussed with Dr. Christian, if he requires surgery in the future he should undergo stress test or FFR of 65% stenosis mRCA for further evaluation. Otherwise medical management would be recommended. TTE shows preserved EF. Discussed with Dr. Christian, okay to defer stress test until out-pt f/u. There was no complication from his procedure. Continue asa, statin, and bb. No heavy lifting over 10 lbs for one month. No tub baths. No driving for one week. Out-pt f/u will be scheduled in [address] Christian. Discussion w patient/family: The assessment and plan as outlined above was discussed with the patient and/or family members who expressed understanding and agreement. All questions were answered. Thank you for involving us in the care of your patient. Please call with any questions. Subjective Principal diagnosis: NSTEMI Interval history: Mr. Khalil is s/p [facility] 07/23/17. No intervention. He denies recurrent symptoms. Ambulating in hallway with no symptoms. Objective Vital Signs, Last 4 Hours Pulse 07/24/17 09:00 68 General: Conversant, No Apparent Distress HEENT: Atraumatic, Normocephaly, Mucus Membranes Moist Neck: No JVD, Normal carotid pulses Cardiac: Reg Rate and Rhythm, Normal S1 and S2, No Murmur Lungs: Normal Breath Sounds, No Wheeze, Rales, Rhonchi Neuro: Alert and responsive, No focal deficits noted Abdomen: Soft, Non-Tender Skin: No rashes noted on visualized skin Musculoskeletal: No Chest Wall Tenderness Extremities: No Clubbing, No Cyanosis, No Edema, Other (bilateral groin dresings removed, left radial dressing removed. All areas without hematoma. ) Results 07/24/17 08:36 07/24/17 08:36 Lab Results 07/23/17 07/24/17 07/24/17 16:24 00:03 05:54 WBC Hgb Hct Plt Count APTT 35.2 69.1 H D 61.2 H Sodium Potassium Chloride Carbon Dioxide BUN Creatinine Glucose Calcium 07/24/17 07/24/17 08:36 08:36 WBC 8.8 Hgb 15.7 Hct 43.8 Plt Count 257 APTT Sodium 137 Potassium 4.1 Chloride 107 Carbon Dioxide 24 BUN 12 Creatinine 0.97 Glucose 87 Calcium 9.4 - Imaging and Cardiology Echo: report reviewed Cardiac cath: report reviewed - EKG Interpretation EKG results cardiology: personally reviewed Consult Discharge Plan - Plan Referrals: NONE [Other] NONE,PCP [Primary Care Provider] -
--- NOTE | 2017-07-24 11:25 | Internal Med Progress Note ---
Date of Encounter: 07/23/17 Time of Encounter: 17:00 - Assessment and plan (1) NSTEMI (non-ST elevated myocardial infarction) Status: Acute Assessment and plan: He has nonobstructive moderate three vessel disease. He will be treated conservatively. See notes from cardiology. He will continue anthera coated Aspirin and atorvastatin. His not taking betablockers due to his peripheral arterial disease. (2) CAD (coronary artery disease) Status: Acute Qualifiers: Coronary Disease-Associated Artery/Lesion type: [place] artery [place] vs. transplanted heart: [place] heart Associated angina: with unstable angina Qualified Code(s): I25.110 - Atherosclerotic heart disease of [place] coronary artery with unstable angina pectoris (3) Peripheral vascular disease Status: Chronic Assessment and plan: He will be taking cilostazol and enteric-coated aspirin. (4) Lumbar radiculopathy Status: Chronic Assessment and plan: Fairly stable at this time. Will continue prn hydrocodone/apap. (5) Tobacco abuse Status: Chronic Assessment and plan: He was advised to quit tobacco. - Time Spent With Patient Total time spent is greater than 50% in coordination of care (as documented) at patient's floor/unit and/or counseling patient: 25 - 35 minutes - Subjective Interval history: I saw this patient after cardiac catheterization. He feels good. Denies chest pain. Denies difficulty breathing. Denies abdominal pain, nausea and vomiting. He has normal urination. - Constitutional Vitals: Temp Pulse Resp BP Pulse Ox 98.2 F 68 16 113/70 97 07/24/17 06:55 07/24/17 09:00 07/24/17 06:55 07/24/17 06:55 07/24/17 06:55 General appearance: Present: cooperative, A&O X 3, pleasant, no acute distress, answers questions appropriately - Respiratory Respiratory exam: Present: CTAB. Absent: accessory muscle use, rales, rhonchi, wheezes - Cardiovascular Cardiovascular exam: Present: RRR, +S1, +S2. Absent: diastolic murmur, gallop, rubs, systolic murmur - GI/Abdominal GI/Abdominal exam: Present: normal bowel sounds, soft, no peritoneal signs. Absent: distended, tenderness - Skin Skin exam: Present: dry, intact Internal Medicine: Result - Labs CBC & Chem 7: 07/24/17 08:36 07/24/17 08:36 Labs: Short CBC 07/24/17 Range/Units 08:36 WBC 8.8 (4.3-11.1) K/mcL Hgb 15.7 (12.9-16.9) g/dL Hct 43.8 (37.5-50.1) % Plt Count 257 (140-400) K/mcL Neutrophils # 5.8 (1.6-8.9) K/mcL BMP 07/24/17 08:36 Sodium 137 Potassium 4.1 Chloride 107 Carbon Dioxide 24 BUN 12 Creatinine 0.97 Glucose 87 Calcium 9.4 - ABG Interpretation ABG results: PT/INR, D-dimer PT 11.5 Seconds (9.4-12.1) 07/23/17 02:53 Consult Discharge Plan - Plan Instructions: Atenolol (By mouth), Simvastatin (By mouth), Left Heart Catheterization (DC), Heart Healthy Diet (DC), Cigarette Smoking and Your Health , Assignment Manager (GEN) Additional Instructions: HE NEEDS FO[facility] ([facility]), DR. JONES (REQUEST MADE), AND CARDIOLOGY. HE HAS NO MEDICAL INSURANCE. RISK FACTORS: STOP SMOKING: If you smoke, STOP. Smoking or tobacco use significantly increases your risk of heart disease because nicotine causes the arteries to narrow or constrict. It also causes fats to stick to the artery. Your chances of having a heart attack are greatly increased if you continue to smoke. For more information, call the education line for smoking cessation 6-785-QUHWQPA EAT A LOW FAT/CHOLESTEROL/SODIUM DIET: This diet may help reduce your chances of having a heart attack. LIFTING: With affected extremity: Avoid bending, pushing off and lifting more than 2 pounds for 24 hours The following 48 hours, avoid lifting anything more than 5 pounds Avoid strenuous activity or repetitive motions LIFTING: Avoid lifting anything more than 10 pounds for 5-7 days Prior to straining, laughing, sneezing and/or coughing, apply manual pressure directly over insertion site. ACTIVITY: You may walk or climb stairs as tolerated You can resume sexual activity as tolerated In general, you are encouraged to engage in a minimum of 30 minutes or more of moderate intensity physical activity, such as brisk walking, daily or at least 3 -4 times weekly BATHING Do not submerge the site into water (bath tub, hot tub, swimming pool, dishes) for 1 week. This can be a source for infection into the blood stream. You may shower after 24 hours SITE CARE: After 24 hours, you may remove the dressing and leave the site open to air. Keep the site clean and dry. Clean gently and pat dry. You can expect bruising and tenderness that gradually resolve within a week or two. Return to work as instructed per your physician Resume driving as instructed per physician Keep all scheduled follow up appointments Resume medications as instructed IMPORTANT: If prescribed a Platelet Aggregation Inhibitor such as, Plavix, Brilinta or Effient: Duration of therapy is minimum one year These medications are often used in combination with Aspirin in prevention of future heart attacks Never discontinue unless consult with your Making Department Preparer STROKE (CVA) Risk factors for a stroke are: Age, cigarette smoking, diabetes, excessive alcohol consumption, family history, high blood pressure, overweight, physical inactivity, prior stroke, heart attack, diagnosis of carotid artery stenosis or other artery disease. Warning signs: Sudden numbness or weakness of the face, arm or leg; especially on one side of the body, sudden confusion, trouble speaking or understanding, sudden trouble seeing in one or both eyes, sudden trouble walking, dizziness, loss of balance or coordination, sudden severe headache with no cause. Call 911 or go to the Emergency Room. CONGESTIVE HEART FAILURE: If you have been diagnosed with Congestive Heart Failure (CHF) and your symptoms return, make an appointment with your physician Weigh yourself daily. Notify your physician if you have a weight gain of two or more pounds in one day or five or more pounds in one week. If you experience any difficulty breathing, please call 911 BLEEDING: Although the risk of bleeding is minimal, it can happen. If you have any bleeding from the site, apply firm pressure above the puncture site for 10-15 minutes. If the bleeding does not stop, continue manual pressure and call 911 Contact [facility] ( ) if: You develop a fever greater than 101 degrees Fahrenheit Your site becomes reddened or has any drainage You have an increase in pain or burning at the site or if a large knot forms at the site. If you experience chest pain, shortness of breath, dizziness, or extreme tiredness, stop the activity and rest. Please notify [facility] office if you experience any of these symptoms and they are not relieved by rest please call 911! No heavy lifting over 10 lbs for one month. No tub baths. No driving for one week. Out-pt f/u will be scheduled in [address] Christian. Continue ordered Baby Aspirin, Atenolol, and Zocor. Referrals: NONE [Other] (Vascular referral appointment request sent on 07/24/17) Karthik Jones MD [Partnered Physician] - (Request made. The office should call you with an appointment. ) NONE,PCP [Primary Care Provider] - (appointment request sent on 07/24/17 [facility] [phone] ) Sharad Christian [Partnered Physician] - (The [facility] level[facility] office will call you with an appointment. ) Prescriptions: Atenolol [Tenormin] 25 mg PO DAILY #30 tablet Simvastatin [Zocor] 20 mg PO HS #30 tablet
[2017-07-24] MEDS: Aspirin Enteric Coated 81 MG Tablet PO SCH (11:27)
--- NOTE | 2017-07-24 11:36 | Discharge Summary ---
- NOTES TO OUTPATIENT PROVIDER Notes to Outpatient Provider: We admitted him with recurrent chest pain. With found him to have mild NSTEMI. He had cardiac catheterization. It showed moderate 3-vessel coronary artery disease and peripheral arterial disease. Follow up with PCP and cardiology. They want to do outpatient stress test. Orders not resulted at time of discharge: Pending orders 07/22/17 15:11 EKG [ECG 12 lead ECG] [ECG] Routine 07/23/17 02:53 A1C [Hgb A1C] AM 0400 07/23/17 11:47 Left Heart Cath [CL Cardiac Catheterization] [CL] Routine 07/25/17 04:00 PTT [Activated Partial Thrombo Time] [COAG] AM 040 Date of Encounter: 07/24/17 Time of Encounter: 11:33 - Discharge Diagnosis (1) NSTEMI (non-ST elevated myocardial infarction) Priority: Primary Status: Acute (2) CAD (coronary artery disease) Priority: Primary Status: Acute Qualifiers: Coronary Disease-Associated Artery/Lesion type: [place] artery [place] vs. transplanted heart: enterprise heart Associated angina: with unstable angina Qualified Code(s): I25.110 - Atherosclerotic heart disease of [place] coronary artery with unstable angina pectoris (3) Peripheral vascular disease Priority: Secondary Status: Chronic (4) Lumbar radiculopathy Priority: Secondary Status: Chronic (5) Tobacco abuse Priority: Secondary Status: Chronic Hospital course: Mr. Khalil is a 51 year old male.He was admitted to the hospital with recurrent chest pain. We found him to have mild elevation of troponin. He was presented to cardiology. They did cardiac catheterization. He has moderate three vessel disease. He will get conservative therapy. He does have significant PAD. The patient doesn't have any medical insurance. I had to change his discharge orders taking into consideration his financial situation. He will be taking atenolol and simvastatin. He will be taking a enteric-coated aspirin. It was good. Denies chest pain. Denies difficulty breathing. He has no symptoms when walking low pace. Discharge discussed with: patient, nurse Time spent discussing smoking cessation with patient: 3 to 10 minutes - Time Spent with Patient Total time spent providing and/or coordinating discharge services: Greater than 30 minutes - Discharge Medications Prescriptions: Atenolol [Tenormin] 25 mg PO DAILY #30 tablet Simvastatin [Zocor] 20 mg PO HS #30 tablet Home Medications: Aspirin Enteric Coated [Aspirin EC] 81 mg PO DAILY tablet. 07/24/17 [Rx] Atenolol [Tenormin] 25 mg PO DAILY #30 tablet 07/24/17 [Rx] Simvastatin [Zocor] 20 mg PO HS #30 tablet 07/24/17 [Rx] Allergies/Adverse Reactions: 3 Allergy/AdvReac Type Severity Reaction Status Date / Time No Known Allergies Allergy Verified 07/22/17 12:58 Date of admission: 07/22/17 13:36 Primary care physician: PCP NONE; HE NEED[facility] Consults: 07/22/17 13:41 Consult to Trader [CONS] Routine Reason for SW Consult: Please assess patient for possible home needs. Patient also has no insurance and needs information about bill plans/financial forgiveness. 07/22/17 13:44 Consult to Cardiology [CONS] Routine Comment: Consulting Provider: Cardiology Ailyn Reason for Consult: Cardiology was consulted in patient transfer discussion /[facility]. Pt. has been having CP intermittently for the past month. Worse w/i last week and this morning. Rt. chest pain that is shrap/stabbing w/radiation to rt. arm. Diaphoresis. No cardiac hx or recent cardiac work-up. Call Completed: Yes 07/23/17 14:39 Consult to Vascular Surgery [CONS] Routine Consulting Provider: Vascular Surgery Ailyn Reason for Consult: Occluded aorta Call Completed: Yes 07/24/17 11:25 Consult to Cardiac Rehabilitation-Phase1 [CONS] Routine Comment: Reason for Consult: NSTEMI Call Completed: No Discharging clinician: Maxwell Connell Anticipated date of discharge: 07/24/17 - Constitutional Vitals: Temp Pulse Resp BP Pulse Ox 98.2 F 68 16 113/70 97 07/24/17 06:55 07/24/17 09:00 07/24/17 06:55 07/24/17 06:55 07/24/17 06:55 General appearance: Present: A&O X 3, pleasant, no acute distress, answers questions appropriately - Respiratory Respiratory exam: Present: CTAB. Absent: rales, rhonchi, wheezes - Cardiovascular Cardiovascular exam: Present: RRR, +S1, +S2. Absent: diastolic murmur, gallop, rubs, systolic murmur - GI/Abdominal GI/Abdominal exam: Present: normal bowel sounds, soft. Absent: distended, tenderness - Patient Status Disposition: Home, Self-Care Condition: Good - Discharge Instructions Instructions: Atenolol (By mouth), Simvastatin (By mouth), Left Heart Catheterization (DC), Heart Healthy Diet (DC), Cigarette Smoking and Your Health , Expediter Service Order (GEN) Follow Up With: NONE [Other] (Vascular referral appointment request sent on 07/24/17) Karthik Jones MD [Partnered Physician] - (Request made. The office should call you with an appointment. ) NONE,PCP [Primary Care Provider] - (appointment request sent on 07/24/17 [facility] [phone] ) Sharad Christian [Partnered Physician] - (The [facility] office will call you with an appointment. ) Additional Instructions: HE NEEDS FOLLOW-UP [facility] ([facility]), DR. JONES (REQUEST MADE), AND CARDIOLOGY. HE HAS NO MEDICAL INSURANCE. RISK FACTORS: STOP SMOKING: If you smoke, STOP. Smoking or tobacco use significantly increases your risk of heart disease because nicotine causes the arteries to narrow or constrict. It also causes fats to stick to the artery. Your chances of having a heart attack are greatly increased if you continue to smoke. For more information, call the education line for smoking cessation 0-061-PQLLZDG EAT A LOW FAT/CHOLESTEROL/SODIUM DIET: This diet may help reduce your chances of having a heart attack. LIFTING: With affected extremity: Avoid bending, pushing off and lifting more than 2 pounds for 24 hours The following 48 hours, avoid lifting anything more than 5 pounds Avoid strenuous activity or repetitive motions LIFTING: Avoid lifting anything more than 10 pounds for 5-7 days Prior to straining, laughing, sneezing and/or coughing, apply manual pressure directly over insertion site. ACTIVITY: You may walk or climb stairs as tolerated You can resume sexual activity as tolerated In general, you are encouraged to engage in a minimum of 30 minutes or more of moderate intensity physical activity, such as brisk walking, daily or at least 3 -4 times weekly BATHING Do not submerge the site into water (bath tub, hot tub, swimming pool, dishes) for 1 week. This can be a source for infection into the blood stream. You may shower after 24 hours SITE CARE: After 24 hours, you may remove the dressing and leave the site open to air. Keep the site clean and dry. Clean gently and pat dry. You can expect bruising and tenderness that gradually resolve within a week or two. Return to work as instructed per your physician Resume driving as instructed per physician Keep all scheduled follow up appointments Resume medications as instructed IMPORTANT: If prescribed a Platelet Aggregation Inhibitor such as, Plavix, Brilinta or Effient: Duration of therapy is minimum one year These medications are often used in combination with Aspirin in prevention of future heart attacks Never discontinue unless consult with your Clock Repair Technician STROKE (CVA) Risk factors for a stroke are: Age, cigarette smoking, diabetes, excessive alcohol consumption, family history, high blood pressure, overweight, physical inactivity, prior stroke, heart attack, diagnosis of carotid artery stenosis or other artery disease. Warning signs: Sudden numbness or weakness of the face, arm or leg; especially on one side of the body, sudden confusion, trouble speaking or understanding, sudden trouble seeing in one or both eyes, sudden trouble walking, dizziness, loss of balance or coordination, sudden severe headache with no cause. Call 911 or go to the Emergency Room. CONGESTIVE HEART FAILURE: If you have been diagnosed with Congestive Heart Failure (CHF) and your symptoms return, make an appointment with your physician Weigh yourself daily. Notify your physician if you have a weight gain of two or more pounds in one day or five or more pounds in one week. If you experience any difficulty breathing, please call 911 BLEEDING: Although the risk of bleeding is minimal, it can happen. If you have any bleeding from the site, apply firm pressure above the puncture site for 10-15 minutes. If the bleeding does not stop, continue manual pressure and call 911 Contact [facility] ( ) if: You develop a fever greater than 101 degrees Fahrenheit Your site becomes reddened or has any drainage You have an increase in pain or burning at the site or if a large knot forms at the site. If you experience chest pain, shortness of breath, dizziness, or extreme tiredness, stop the activity and rest. Please notify [facility] office if you experience any of these symptoms and they are not relieved by rest please call 911! No heavy lifting over 10 lbs for one month. No tub baths. No driving for one week. Out-pt f/u will be scheduled in [address] Christian. Continue ordered Baby Aspirin, Atenolol, and Zocor. - Diet and Activity Activity: resume usual activities as tolerated - VTE Deep Vein Thrombosis/Pulmonary Embolism Present on Admission: No
[2017-07-24 11:51] VITALS: BP 137/88
[2017-07-26 09:17] LABS: Estimated Average Glucose 120 mg/dl; Hemoglobin A1C 5.8 %
--- NOTE | 2017-07-26 11:35 | Electrocardiograph Report ---
[address] [address] Test Date: 2017-07-22 Pat Name: Hai Khalil Department: 110 Room: 01 Gender: M Exhibition Carver: MILAGROS : 1965 Requested By: [id number] Order Number: [id number] Reading MD: Kobi Mendiola Measurements Intervals [place] Rate: 58 P: 67 [place]: 123 QRS: 29 QRSD: 90 T: 72 QT: 401 QTc: 397 Interpretive Statements SINUS BRADYCARDIA WITH SINUS ARRHYTHMIA POSSIBLE RIGHT VENTRICULAR CONDUCTION DELAY NONSPECIFIC T-WAVE ABNORMALITY Electronically Signed On 07-26-2017 11:33:19 EDT by Kobi Mendiola
== END 2017-07-24 15:13 | disposition home or self-care (01) | DRG 282 ==
LOC: 2NNU → SUATTDRO 13:36
PROVIDERS: ADMIT Hospitalist; ATTEND Internal Medicine